=== PATIENT | female | born 1995 | race Caucasian/White ===

== ENCOUNTER 2017-08-18 21:20 | Emergency (ER) | payer SELFPAY ==
[~2017-08-18] VITALS: Ht 147.3 cm; Wt 67.6 kg
[2017-08-18 21:38] VITALS: Ht 147.3 cm; Wt 67.6 kg
[2017-08-19 00:48] VITALS: BP 143/88
== END 2017-08-19 00:48 | disposition home or self-care (01) ==
LOC: ED 21:20
DX: B34.9 Viral infection, unspecified (principal)
CPT/HCPCS: J2930; J7613; J7644